=== PATIENT | male | born 1995 | race Caucasian/White ===

== ENCOUNTER 2020-06-18 04:24 | Emergency (ER) | payer OTHER, SELFPAY ==
[2020-06-18 04:30] VITALS: BP 129/87; PULSE 70; RESP 16; TEMP 36.6; O2SAT 98; BMI 28.4
--- NOTE | 2020-06-18 04:33 | ED.EAR ---
HPI - Ear Problem General Chief complaint: Ear Problems Stated complaint: EAR PAIN Time Seen by Provider: 06/18/20 04:33 History of Present Illness HPI Narrative: Patient is a 25-year-old male presents today with having earache to the left ear. It has been ongoing for about 2 days. No fever no chills. No cough no congestion or upper respiratory symptoms. No diaphoresis. Patient from home. Related Data Previous Rx's Medication Instructions Recorded azithromycin [Zithromax Z-Neri] 250 mg PO DAILY 5 Days #5 tab 06/18/20 ibuprofen 400 mg PO Q6H PRN #20 tab 06/18/20 Allergies Allergy/AdvReac Type Severity Reaction Status Date / Time No Known Allergies Allergy Verified 01/16/20 13:14 Review of Systems Review of Systems: Constitutional: No Weight loss, No Fever, No Chills, No Night Sweats, No Fatigue, No Malaise ENT/Mouth: No Hearing loss, positive Ear Pain, No Nasal Congestion, No Sinus Pain, No Hoarseness, No sore throat, No Rhinorrhea, No Swallowing Difficulty Eyes: No Eye Pain, No Swelling, No Redness, No Foreign Body, No Discharge, No Vision Changes Cardiovascular: No Chest Pain, No SOB, No Dyspnea on Exertion, No Orthopnea, No Edema, No Palpitations Respiratory: No Cough, No Sputum, No Wheezing, No Smoke Exposure, No Dyspnea Gastrointestinal: No Nausea, No Vomiting, No Diarrhea, No Constipation, No abdominal Pain, No Hematochezia, No Melena Genitourinary: no irregular bleeding, No Dysuria, No Urinary Frequency, No Hematuria, No Urinary Incontinence, No Urgency, No Flank Pain, No Urinary Flow Changes, No Hesitancy Musculoskeletal: No joint pain, No Myalgias, No Joint Swelling Skin: No Skin Lesions, No rash Neuro: No Weakness, No Numbness, No Paresthesias, No Loss of Consciousness, No Dizziness, No Headache Psych: No Anxiety/Panic, No Depression, No SI/HI/AH/VH, No Social Issues, Heme/Lymph: No Bruising, No Bleeding,No Lymphadenopathy Endocrine: No Polyuria, No Polydipsia, No Temperature Intolerance PMFSH Past Medical History Surgical History No pertinent past surgical history Family History Family History Father Hypertension Stroke Mother Alive and well Physical Exam Vital Signs: Vital Signs: Last Vital Signs Temp 98 F 06/18/20 04:30 Pulse 70 06/18/20 04:30 Resp 16 06/18/20 04:30 BP 129/87 06/18/20 04:30 Pulse Ox 98 06/18/20 04:30 Body Mass Index 28.4 Appearance: Alert. Oriented X3. No acute distress. Eyes: Pupils equal, round and reactive to light. ENT: Pharynx normal. TMs on the left side erythematous bulging. Obscured TM on the right side is clear. Landmarks noted. No erythema Neck: Normal inspection. Neck supple. No lymph nodes noted. No crepitus CVS: Normal heart rate and rhythm. Pulses normal. Normal S1 and S2 Respiratory: No respiratory distress. Breath sounds normal. No Wheezing. No rales Abdomen: Soft and nontender. No rigidity. No distention. good BS x4 Skin: Skin warm and dry. Normal skin color. Normal skin turgor. Extremities: No lower extremity edema. Neurovascular intact to all extremities. No Lacerations. No Rash Neuro: Oriented X 3. No motor deficit. No sensory deficit. Moving all extermities. No slurred speech MDM - Ear MDM Narrative Medical decision making narrative: Patient has otitis media will discharge patient home on antibiotic and pain medication. In stable condition. Differential Diagnosis Differential diagnosis: Likely otitis media Discharge Plan Discharge Clinical Impression: Otitis media Patient Disposition: Home, Self-Care Instructions: Ear Infection (ED) Prescriptions: New ibuprofen 400 mg tablet 400 mg PO Q6H PRN (Reason: pain) Qty: 20 RF: 0 azithromycin [Zithromax Z-Neri] 250 mg tablet 250 mg PO DAILY 5 Days Qty: 5 RF: 0 Referrals: Tomasa Tapia MD [Primary Care Provider] - 2 days
== END 2020-06-18 05:15 | disposition home or self-care (01) ==
LOC: HO.ED 04:42
PROVIDERS: Emergency Provider Emergency Medicine Emergency Medical Services; PCP Internal Medicine
DX: H66.92 Otitis media, unspecified, left ear (principal)
CPT/HCPCS: 99283

== ENCOUNTER 2020-08-27 09:34 | Outpatient (REF) | payer OTHER, SELFPAY | END 2020-08-27 09:35 | disposition home or self-care (01) | LOC: HO.LAB 09:34 | PROVIDERS: Visit Provider Internal Medicine | DX: Z20.822 Contact with and (suspected) exposure to COVID-19 (principal) | CPT/HCPCS: C9803; U0003; U0005 ==

== ENCOUNTER 2021-03-12 00:39 | Emergency (ER) | payer OTHER, SELFPAY ==
[2021-03-12 01:50] VITALS: BP 136/92; PULSE 80; RESP 16; TEMP 37.1; O2SAT 100
[2021-03-12] MEDS: Cyclobenzaprine HCl 5 MG TABLET PO (01:58)
[2021-03-12] MEDS: Acetaminophen 325 MG TABLET 975 MG PO (01:58)
[2021-03-12] MEDS: Lidocaine 4 % Patch ADH..PATCH 1 PATCH TRANSDERMA (01:58)
[2021-03-12] MEDS: Ketorolac Tromethamine 30 MG/ML VIAL 15 MG IM (01:59)
[2021-03-12 02:07] LABS: Appearance Urine CLEAR; Color Urine YELLOW; Glucose Urine UA NEG (NEG); Leukocyte Esterase Urine NEG (NEG); Nitrite Urine NEG (NEG); Specific Gravity - Urine >= 1.030 (1.005-1.025); UACC Culture Trigger NO; Urine Blood TRACE (NEG); Urine Ketones NEG (NEG); Urine Protein NEG (NEG-TRACE)
[2021-03-12 02:16] LABS: Bacteria Urine TRACE /LPF; Squamous Epithelial Cell Urine TRACE /LPF; WBC Urine 0-2 /HPF (0-4)
--- NOTE | 2021-03-12 02:23 | ED.BACK ---
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 He otherwise denies any abdominal pain, bowel or bladder dysfunction and denies any numbness in the groin area. Related Data Previous Rx's Medication Instructions Recorded azithromycin 250 mg tablet 250 mg PO DAILY 5 Days #5 tab 06/18/20 (Zithromax Z-Neri) ibuprofen 400 mg tablet 400 mg PO Q6H PRN #20 tab 06/18/20 ketorolac 10 mg tablet 10 mg PO Q6H PRN 5 Days #20 tab 03/12/21 Allergies Allergy/AdvReac Type Severity Reaction Status Date / Time No Known Allergies Allergy Verified 01/16/20 13:14 Review of Systems Review of Systems: Pertinent positives and negatives as stated in HPI 10 point review of systems is otherwise negative. PMFSH Past Medical History Source: nursing notes reviewed Surgical History No pertinent past surgical history Family History Family History Father Hypertension Stroke Mother Alive and well Social History Social History Advance Directives: No Advance Directives Information Provided: Yes Physical Exam Vital Signs: Vital Signs: Last Vital Signs Temp 98.7 F 03/12/21 01:50 Pulse 73 03/12/21 03:44 Resp 16 03/12/21 03:44 BP 132/93 H 03/12/21 03:44 Pulse Ox 100 03/12/21 01:50 VITAL SIGNS: Reviewed. GENERAL: Well developed, well nourished, in no acute distress. HEAD: Normocephalic/atraumatic EYES: PERRLA, EOMI OROPHARYNX: no oral lesions noted, posterior pharynx clear LUNGS: Normal breath sounds. No adventitious sounds or accessory muscle use. SpO2<100> CARDIOVASCULAR: Regular rate and rhythm without noted murmurs ABDOMEN: Soft, non-tender, non-distended with bowel sounds. BACK: Straight leg test negative, no midline vertebral tenderness noted, pain on palpation at the right lower paraspinal area of the back at approximately L4/L5, symmetrical strength bilaterally in lower extremities NEUROLOGIC: Alert and oriented x 4. Strength and sensation to light touch were grossly intact x 4. Course Course Course Narrative: 25-year-old male with history and clinical presentation consistent with muscle strain and will be provided with combination analgesics and re-evaluated. On re-evaluation patient has had complete resolution of his pain and discomfort in on review of all investigations are no acute findings. MDM - Back Pain/Injury Lab Data Labs: Lab Results 03/12/21 Range/Units 02:01 Urine Color YELLOW Urine Appearance CLEAR Urine pH 6.0 (5.0-8.0) Ur Specific [facility] >= 1.030 H (1.005-1.025) Urine Protein NEG (NEG-TRACE) MG/DL Urine Glucose (UA) NEG (NEG) MG/DL Urine Ketones NEG (NEG) MG/DL Urine Blood TRACE (NEG) Urine Nitrite NEG (NEG) Ur Leukocyte Esterase NEG (NEG) Urine RBC 1-4 (0) /HPF Urine WBC 0-2 (0-4) /HPF Ur Squamous Epith Cells TRACE /LPF Urine Bacteria TRACE /LPF Discharge Plan Discharge Clinical Impression: Acute back pain Patient Disposition: Home, Self-Care Instructions: Acute Low Back Pain (ED) Additional Instructions: 1. Tylenol 1000 mg, orally, every 6 hours as needed for pain control. Do not exceed 4000 mg within 24 hours. 2. Lidocaine patch, this is available [id number] and should be apply to area of maximal pain as directed on the outside packaging. 3. Follow-up with your primary care provider Sunday morning for re-evaluation further outpatient management. Return to the ER for acute worsening of symptoms. Prescriptions: New ketorolac 10 mg tablet 10 mg PO Q6H PRN (Reason: pain) 5 Days Qty: 20 RF: 0 No Action ibuprofen 400 mg tablet 400 mg PO Q6H PRN (Reason: pain) Qty: 20 RF: 0 azithromycin [Zithromax Z-Neri] 250 mg tablet 250 mg PO DAILY 5 Days Qty: 5 RF: 0 Referrals: Taj Zavala DO [Primary Care Provider] - 2 days
[2021-03-12 03:41] VITALS: BP 132/93; PULSE 74; RESP 16
[2021-03-12 03:44] VITALS: BP 132/93; PULSE 73; RESP 16
== END 2021-03-12 04:15 | disposition home or self-care (01) ==
PROVIDERS: Emergency Provider Student in an Organized Health Care Education/Training Program; PCP Internal Medicine
DX: M54.50 Low back pain, unspecified (principal)
CPT/HCPCS: 81001; 99283; J1885

== ENCOUNTER 2021-03-14 15:06 | Emergency (ER) | payer OTHER, SELFPAY ==
--- NOTE | ~2021-03-14 | XR_ITS ---
EXAMINATION: XR LUMBOSACRAL SPINE WITH OBLIQUES CLINICAL INFORMATION: Lower back pain following work-related injury. COMPARISON: None TECHNIQUE: AP, both oblique, and lateral views of the lumbar spine. Lateral view of the lumbosacral junction. FINDINGS: Transitional anatomy with partial sacralization of the L5 vertebral body. Normal vertebral body alignment. The lumbar lordosis is maintained. No acute fracture or subluxation. No loss of vertebral body height. Loss of intervertebral disc height with tiny endplate osteophytes at L4-L5. No lytic or blastic osseous lesion. No abnormal soft tissue calcification. XR/XR lumbar spine 4V min IMPRESSION: 1. No acute osseous abnormality. 2. 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 3. Minimal degenerative disc disease at L4-L5.
[2021-03-14 17:39] VITALS: BP 140/88; PULSE 63; RESP 17; TEMP 36.6; O2SAT 99; BMI 25.8
[2021-03-14] MEDS: diazePAM 5 MG TABLET 10 MG PO (20:07)
--- NOTE | 2021-03-14 20:37 | ED_ITS ---
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 He denies head injury or loss of consciousness. Although since then he has been having pain radiating to his right lower extremity. He reports that he was seen here did not have any imaging and was taking the Toradol as prescribed although mild to no symptomatic relief. He denies any new injuries complaints or concerns. He denies any abdominal pain, paresthesias, numbness, tingling, black or bloody stools, hematuria, dysuria, urinary/bowel incontinence or retention, saddle anesthesias or any other symptoms complaints or concerns at this time. MD elicited complaint: back pain, back injury and fall Pertinent past history: recent trauma Onset (ago): day(s) (2-3 days ago ) Timing: constant and progressively worsening Severity: moderate Similar Symptoms Previously: No Quality: aching Location: lumbar spine Radiation: right leg below the knee Exacerbating factors: movement, sitting upright, walking and lifting Relieving factors: none Context: while lifting, turning/twisting, bending and fall Associated symptoms: denies other symptoms Treatments prior to arrival: NSAIDS Work related injury: Yes Related Data Previous Rx's Medication Instructions Recorded azithromycin 250 mg tablet 250 mg PO DAILY 5 Days #5 tab 06/18/20 (Zithromax Z-Neri) ibuprofen 400 mg tablet 400 mg PO Q6H PRN #20 tab 06/18/20 ketorolac 10 mg tablet 10 mg PO Q6H PRN 5 Days #20 tab 03/12/21 acetaminophen 300 mg-codeine 30 mg 1 tab PO Q8H PRN #14 tab 03/14/21 tablet diazepam 10 mg tablet (Valium) 10 mg PO TID PRN #10 tab 03/14/21 Allergies Allergy/AdvReac Type Severity Reaction Status Date / Time No Known Allergies Allergy Verified 03/14/21 17:39 Review of Systems Review of Systems: Constitutional : No trauma, No Weight loss, No Fever, No Chills, ENT/Mouth : No Hearing loss, No Ear Pain, No Nasal Congestion, No Sinus Pain, No Hoarseness, No sore throat, No Rhinorrhea, No Swallowing Difficulty Cardiovascular : No Chest Pain, No SOB Respiratory : No Cough, No Dyspnea Gastrointestinal : No Nausea, No Vomiting, No Diarrhea, No abdominal Pain, No Hematochezia, No Melena Genitourinary : No Dysuria, No Urinary Frequency, No Hematuria, No Urinary or Bowel Incontinence/retention Musculoskeletal : + Back pain, No neck pain, No joint stiffness, No joint swelling Skin : No Skin Lesions, No rash or signs of infection Neuro : No Weakness, + radiation, No Numbness, No Paresthesias, No headache, no loss of bowel or bladder incontinence, no saddle anesthesia, Focal weakness, No radiation Denies history of IV drug usage. Yes all other systems are reviewed and are negative [facility] Past Medical History Attestation statement: The following information was validated with the patient. Surgical History No pertinent past surgical history Family History Family History Father Hypertension Stroke Mother Alive and well Social History Social History Advance Directives: No Advance Directives Information Provided: Yes Physical Exam Vital Signs: Vital Signs: Last Vital Signs Temp 97.9 F 03/14/21 17:39 Pulse 63 03/14/21 17:39 Resp 17 03/14/21 17:39 BP 140/88 H 03/14/21 17:39 Pulse Ox 99 03/14/21 17:39 BMI result Body Mass Index 25.8 vital signs have been reviewed as normal and appeared to be correct. Blood pressure normal. Heart rate normal. Respiration rate normal. Temperature normal. Oxygen saturation normal. Appearance: Alert. Oriented X3. No acute distress. Head: Normal external exam. Normocephalic. Atraumatic. No Gomez signs noted. No raccoon eyes noted Eyes: PERRLA. EOMI. Conjunctiva and sclera normal. Eyelids normal. ENT: EAC normal. TM's Normal. Pharynx normal. Uvula midline. Moist mucous membranes. No trismus noted. No drooling noted. No muffled voice noted. Neck: Normal inspection. Neck supple. FROM. No adenopathy. Thyroid Normal. No meningeal signs. No neck mass noted. CVS: Normal heart rate and rhythm. Heart sound normal. No murmurs noted. Pulses normal throughout. Respiratory: No respiratory distress. Painless inspiration. Breath sounds normal. No wheezes/rales/rhonchi noted. Chest nontender. No accessory muscle usage noted or decreased air movement noted. Abdomen: Soft and nontender. Bowel sounds normal in all 4 quadrants. No distention noted. No organomegaly noted. No visible injury noted. Back: No CVA tenderness. Full range of motion noted. No obvious deformities, or edema. Mild para-spinal muscular tenderness from lumbar region to coccyx. Full ROM in back and lower extremities. 5/5 strength hip extension/flexion, abduction, adduction. Mild Lumbar pain with hip flexion against resistance. Straight leg raise test negative on right; Straight leg raise test negative on left; Reflexes normal ankle and knee bilaterally; EHL motor strength normal bilaterally. No rashes/lesion/induration/fluctuance or signs infection noted. Skin: Skin warm and dry. Normal skin color. Normal skin turgor. No rashes/lesions/lacerations noted. Extremities: No lower extremity edema. Extremities exhibit normal range of motion. Extremities nontender. Neuro: Oriented X 3. No motor deficit. No sensory deficit. Reflexes normal. Patient has a normal steady gait. Course Course Course Narrative: Pt c likely muscular pain, but could be herniated disc. Neuro exam shows no deficits. Not consistent with cauda equina. Not c/w AAA/epidural abscess/dissection.No high risk Hx (Incont, fever, immunosupp, recent surgery/LP, coag, signif trauma, wt loss, puls mass, hx/o Ca, TB, or IVDU) to warrant MRI/CT today. Not c/w Pyelo/UTI/kidney stone. Due to work related injury and patient having a fall and not having any injury unable to rule out spinal fracture despite patient having a normal exam therefore will obtain an x- ray of lumbar spine if negative will DC home with symptomatic treatment instructions return if any new or worsening symptoms to follow up with [facility]. Patient understands agrees with this plan. MDM - Back Pain/Injury Medical Records Attestation: I reviewed the patient's medical records. Imaging Data Lumbar spine x-ray: Attestation: I personally reviewed and interpreted this imaging study as follows: Radiologist's impression: FINDINGS: Transitional anatomy with partial sacralization of the L5 vertebral body. Normal vertebral body alignment. The lumbar lordosis is maintained. No acute fracture or subluxation. No loss of vertebral body height. Loss of intervertebral disc height with tiny endplate osteophytes at L4-L5. No lytic or blastic osseous lesion. No abnormal soft tissue calcification.? XR/XR lumbar spine 4V min IMPRESSION: 1. No acute osseous abnormality. ? 2. 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 ? 3. Minimal degenerative disc disease at L4-L5.? Discharge Plan Discharge Clinical Impression: Strain of lumbar region, Work related injury, Fall Patient Disposition: Home, Self-Care Instructions: Low Back Strain (ED), Return to Work Instructions (ED) Prescriptions: New acetaminophen-codeine 300-30 mg tablet 1 tab PO Q8H PRN (Reason: pain) Qty: 14 RF: 0 diazepam [Valium] 10 mg tablet 10 mg PO TID PRN (Reason: muscle spasm) Qty: 10 RF: 0 No Action ibuprofen 400 mg tablet 400 mg PO Q6H PRN (Reason: pain) Qty: 20 RF: 0 azithromycin [Zithromax Z-Neri] 250 mg tablet 250 mg PO DAILY 5 Days Qty: 5 RF: 0 ketorolac 10 mg tablet 10 mg PO Q6H PRN (Reason: pain) 5 Days Qty: 20 RF: 0 Referrals: [facility] [Provider Group] - 2 days Physician,Unknown J [Primary Care Provider] - 2 days (your pcp) Stand Alone Forms: Work/School Release Print Language: Kazakh
== END 2021-03-14 21:35 | disposition home or self-care (01) ==
PROVIDERS: Emergency Provider Emergency Medicine
DX: S39.012A Strain of muscle, fascia and tendon of lower back, initial encounter (principal); W18.30XA Fall on same level, unspecified, initial encounter; Y93.9 Activity, unspecified; Y92.242 Post office as the place of occurrence of the external cause; Y99.0 Civilian activity done for income or pay
CPT/HCPCS: 72110; 99283